=== PATIENT | female | born 1945 | race Caucasian/White ===

== ENCOUNTER 2020-02-20 08:51 | Emergency (ER) | payer BC ==
[~2020-02-20] VITALS: Ht 162.6 cm; Wt 52.0 kg
--- NOTE | 2020-02-20 10:13 | NUR ---
pt out to [place] via wheelchair with production consultant
--- NOTE | 2020-02-20 10:33 | NUR ---
pt returns form [place]
[2020-02-20] MEDS ORDERED: aspirin 325mg tablet PO ONE (10:50)
[2020-02-20 11:04] VITALS: BP 147/71
== END 2020-02-20 11:06 | disposition home or self-care (01) ==
LOC: ER 08:53
DX: H54.7 Unspecified visual loss (principal); Z88.0 Allergy status to penicillin; Z88.2 Allergy status to sulfonamides
CPT/HCPCS: 70450; 72125; 99285